=== PATIENT | male | born 1985 | race Two or more races ===

== ENCOUNTER 2017-09-28 13:36 | Emergency (ER) | payer BC, OTHER ==
[~2017-09-28] VITALS: Ht 172.7 cm; Wt 77.1 kg
[2017-09-28 13:59] VITALS: BP 136/82
[2017-09-29 09:12] LABS: Hepatitis B Surface Antibody Positive
[2017-09-29 10:49] LABS: Hepatitis B Surface Antigen Negative (Negative)
== END 2017-09-28 15:10 | disposition home or self-care (01) ==
LOC: ER 13:37
DX: H57.8 Other specified disorders of eye and adnexa (principal); Z77.21 Contact with and (suspected) exposure to potentially hazardous body fluids; W46.0XXA Contact with hypodermic needle, initial encounter; Y93.89 Activity, other specified; Y99.8 Other external cause status; Y92.89 Other specified places as the place of occurrence of the external cause
CPT/HCPCS: 36415; 86703; 86706; 86803; 87340

== ENCOUNTER → 2018-03-02 | Outpatient (CLI) | payer BC ==
[2018-03-02 11:39] LABS: Basophils # (auto) 0 uL; Basophils % (auto) 0.5 % (0.0-2.0); Eosinophils # (auto) 0.1 uL; Hematocrit 48.3 % (41.0-53.0); Lymphocytes # (auto) 1.6 uL; Mean Corpuscular Hemoglobin 28.6 pg (28.0-32.0); Mean Corpuscular Hgb Conc. 33.2 g/dL (32.0-36.0); Mean Corpuscular Volume 86.1 fL (80.0-100.0); Monocytes # (auto) 0.5 uL; Neutrophils # (auto) 3.6 uL; Neutrophils % (auto) 62.5 % (37.0-80.0); Nucleated Red Blood Cells % 0.1 %; Platelet Count (auto) 206 10^3/uL (140-450); Red Blood Cells 5.61 10^6/uL (4.5-5.90); Red Cell Distribution Width 15.1 % (11.8-14.3); White Blood Cell 5.8 10^3/uL (4.4-10.8)
[2018-03-02 13:15] LABS: Albumin 4.2 g/dL (3.4-5.0); Calcium 8.6 mg/dL (8.5-10.1); Potassium 4.4 mmol/L (3.5-5.1)
[2018-03-02 13:22] LABS: Bilirubin, Direct 0.1 mg/dL (0-0.2); Bilirubin, Total 0.6 mg/dL (0.2-1.0); Total Protein 7.6 g/dL (6.4-8.2)
== END | disposition home or self-care (01) ==
LOC: LAB 11:22
PROVIDERS: ATTEND Specialist
DX: I10 Essential (primary) hypertension (principal); R94.5 Abnormal results of liver function studies; D64.9 Anemia, unspecified; E78.00 Pure hypercholesterolemia, unspecified; E11.9 Type 2 diabetes mellitus without complications; E03.9 Hypothyroidism, unspecified
CPT/HCPCS: 36415; 80048; 80061; 80076; 83036; 84443; 85025

== ENCOUNTER 2019-04-15 14:50 | Emergency (ER) | payer BC ==
[~2019-04-15] VITALS: Ht 172.7 cm; Wt 81.6 kg
[2019-04-15 15:04] VITALS: BP 151/81
[2019-04-15] MEDS ORDERED: KETOROLAC TROMETH 60MG/2ML VIAL IM ONE (16:30)
== END 2019-04-15 18:16 | disposition home or self-care (01) ==
LOC: ER 14:50
DX: M54.5 Low back pain (principal)
CPT/HCPCS: 72100; 96372; 99283; J1885

== ENCOUNTER → 2019-04-20 | Outpatient (CLI) | payer BC ==
[2019-04-20 10:43] LABS: Basophils # (auto) 0 uL; Basophils % (auto) 0.6 % (0.0-2.0); Eosinophils # (auto) 0.1 uL; Eosinophils % (auto) 1.4 % (0.0-7.0); Hematocrit 49.1 % (41.0-53.0); Hemoglobin 16.2 g/dL (13.5-17.5); Lymphocytes # (auto) 1.8 uL; Lymphocytes % (auto) 31.2 % (10.0-50.0); Mean Corpuscular Hemoglobin 28.6 pg (28.0-32.0); Mean Corpuscular Volume 86.7 fL (80.0-100.0); Monocytes # (auto) 0.6 uL; Monocytes % (auto) 9.4 % (0.0-12.0); Neutrophils # (auto) 3.4 uL; Neutrophils % (auto) 57.4 % (37.0-80.0); Nucleated Red Blood Cells % 0.1 %; Platelet Count (auto) 184 10^3/uL (140-450); Red Blood Cells 5.66 10^6/uL (4.5-5.90); Red Cell Distribution Width 15.1 % (11.8-14.3); White Blood Cell 5.9 10^3/uL (4.4-10.8)
[2019-04-20 11:00] LABS: Urine Bacteria NONE SEEN /hpf (None Seen); Urine Blood Negative /uL (Negative); Urine WBC 1 /hpf (0 - 3)
[2019-04-20 11:31] LABS: Albumin 4.4 g/dL (3.4-5.0); Calcium 8.9 mg/dL (8.5-10.1); Magnesium 2.5 mg/dL (1.6-2.6); Potassium 4.5 mmol/L (3.5-5.1); Uric Acid 4.7 mg/dL (3.5-7.2)
[2019-04-20 11:36] LABS: Bilirubin, Total 0.5 mg/dL (0.2-1.0); Total Protein 8.1 g/dL (6.4-8.2)
[2019-04-20 15:22] LABS: BUN/Creatinine Ratio 14.9
== END | disposition home or self-care (01) ==
LOC: LAB 10:08
PROVIDERS: ATTEND Internal Medicine
DX: Z00.00 Encounter for general adult medical examination without abnormal findings (principal); Z76.89 Persons encountering health services in other specified circumstances
CPT/HCPCS: 36415; 80053; 80061; 81001; 82306; 82607; 83036; 83735; 84403; 84443; 84550; 85025

== ENCOUNTER 2019-04-26 09:44 | Emergency (ER) | payer BC ==
[~2019-04-26] VITALS: Ht 172.7 cm; Wt 83.9 kg
[2019-04-26 09:49] VITALS: BP 145/98
[2019-04-26] MEDS ORDERED: KETOROLAC TROMETH 60MG/2ML VIAL IM ONE (10:15)
[2019-04-26 10:34] LABS: Urine Bacteria NONE SEEN /hpf (None Seen); Urine Blood Negative /uL (Negative); Urine Mucus FEW (None Seen); Urine Specific Gravity 1.028 (1.001-1.035); Urine WBC 2 /hpf (0 - 3)
== END 2019-04-26 11:19 | disposition home or self-care (01) ==
LOC: ER 09:44
DX: S39.012A Strain of muscle, fascia and tendon of lower back, initial encounter (principal); X50.1XXA Overexertion from prolonged static or awkward postures, initial encounter; Y93.89 Activity, other specified; Y92.89 Other specified places as the place of occurrence of the external cause; Y99.8 Other external cause status
CPT/HCPCS: 74176; 81001; 96372; 99284; J1885

== ENCOUNTER 2020-02-16 12:28 | Emergency (ER) | payer BC, OTHER ==
[~2020-02-16] VITALS: Ht 175.3 cm; Wt 83.9 kg
[2020-02-16 12:30] VITALS: BP 174/93
[2020-02-16] MEDS ORDERED: cefTRIAXone SOD 1,000 MG VL IM ONE (15:00)
[2020-02-16 15:24] LABS: Basophils # (auto) 0 10 ^3/uL (0-0.2); Basophils % (auto) 0.2 % (0.0-2.0); Eosinophils # (auto) 0 10 ^3/uL (0-0.8); Eosinophils % (auto) 0.1 % (0.0-7.0); Hematocrit 51.7 % (41.0-53.0); Hemoglobin 17.2 g/dL (13.5-17.5); Lymphocytes # (auto) 1.5 10 ^3/uL (0.4-5.4); Lymphocytes % (auto) 15.9 % (10.0-50.0); Mean Corpuscular Hemoglobin 28.7 pg (28.0-32.0); Mean Corpuscular Hgb Conc. 33.3 g/dL (32.0-36.0); Mean Corpuscular Volume 86.3 fL (80.0-100.0); Monocytes # (auto) 0.7 10 ^3/uL (0-1.3); Monocytes % (auto) 6.9 % (0.0-12.0); Neutrophils # (auto) 7.4 10 ^3/uL (1.6-8.6); Neutrophils % (auto) 76.9 % (37.0-80.0); Platelet Count (auto) 271 10^3/uL (140-450); Red Blood Cells 5.99 10^6/uL (4.5-5.90); Red Cell Distribution Width 14.6 % (11.8-14.3)
[2020-02-16 15:30] LABS: White Blood Cell 9.7 10^3/uL (4.4-10.8)
[2020-02-16 15:31] LABS: Albumin 4.5 g/dL (3.4-5.0); Calcium 9.3 mg/dL (8.5-10.1); Potassium 4.5 mmol/L (3.5-5.1)
[2020-02-16 15:35] LABS: BUN/Creatinine Ratio 13.8; Bilirubin, Total 0.4 mg/dL (0.2-1.0)
== END 2020-02-16 17:16 | disposition home or self-care (01) ==
LOC: ER 12:28
DX: U07.1 COVID-19 (principal); J20.8 Acute bronchitis due to other specified organisms; J03.90 Acute tonsillitis, unspecified
CPT/HCPCS: 36415; 71045; 80053; 82728; 83615; 85025; 96372; 99284; J0696

== ENCOUNTER 2020-02-19 02:21 | Emergency (ER) | payer BC ==
[~2020-02-19] VITALS: Ht 175.3 cm; Wt 83.9 kg
[2020-02-19 02:44] LABS: Basophils # (auto) 0 10 ^3/uL (0-0.2); Basophils % (auto) 0.3 % (0.0-2.0); Eosinophils # (auto) 0 10 ^3/uL (0-0.8); Eosinophils % (auto) 0.3 % (0.0-7.0); Hemoglobin 17.1 g/dL (13.5-17.5); Lymphocytes # (auto) 2.1 10 ^3/uL (0.4-5.4); Lymphocytes % (auto) 27.1 % (10.0-50.0); Mean Corpuscular Hemoglobin 28.2 pg (28.0-32.0); Mean Corpuscular Hgb Conc. 32.8 g/dL (32.0-36.0); Monocytes # (auto) 0.7 10 ^3/uL (0-1.3); Neutrophils # (auto) 4.9 10 ^3/uL (1.6-8.6); Neutrophils % (auto) 63.3 % (37.0-80.0); Nucleated Red Blood Cells % 0.2 %; Platelet Count (auto) 293 10^3/uL (140-450); Red Blood Cells 6.04 10^6/uL (4.5-5.90); Red Cell Distribution Width 14.3 % (11.8-14.3); White Blood Cell 7.8 10^3/uL (4.4-10.8)
[2020-02-19 02:51] VITALS: BP 147/106
[2020-02-19 02:51] LABS: Albumin 4.4 g/dL (3.4-5.0); Anion Gap 6 (5-15); Blood Urea Nitrogen 13 mg/dL (7-18); Calcium 9.2 mg/dL (8.5-10.1); Carbon Dioxide 27 mmol/L (21-32); Chloride 104 mmol/L (98-107); Glucose 118 mg/dL (74-106); Potassium 3.8 mmol/L (3.5-5.1); Sodium 137 mmol/L (136-145)
[2020-02-19 02:57] LABS: Alanine Aminotransferase 35 U/L (16-61); Alkaline Phosphatase 73 U/L (45-117); Aspartate Aminotransferase 11 U/L (15-37); BUN/Creatinine Ratio 13.8; Bilirubin, Total 0.7 mg/dL (0.2-1.0); GFR African American 117 mL/min; GFR Non-African American 97 mL/min
[2020-02-19 03:00] LABS: INR 1.08 (0.9-1.15); Partial Thromboplastin Time 27.3 sec (23.0-31.2)
== END 2020-02-19 05:08 | disposition home or self-care (01) ==
LOC: EEVIPCON 02:21 → ER 02:24
DX: U07.1 COVID-19 (principal); J20.8 Acute bronchitis due to other specified organisms; J18.8 Other pneumonia, unspecified organism
CPT/HCPCS: 36415; 71045; 80053; 83880; 84484; 85025; 85379; 85610; 85730; 87426; 87804; 99284; C9803; U0003

== ENCOUNTER → 2020-03-03 | Outpatient (CLI) | payer BC ==
[2020-03-03 10:46] LABS: Basophils # (auto) 0 10 ^3/uL (0-0.2); Basophils % (auto) 0.3 % (0.0-2.0); Eosinophils # (auto) 0.1 10 ^3/uL (0-0.8); Eosinophils % (auto) 1.2 % (0.0-7.0); Hematocrit 49.3 % (41.0-53.0); Hemoglobin 16.6 g/dL (13.5-17.5); Lymphocytes # (auto) 2.2 10 ^3/uL (0.4-5.4); Lymphocytes % (auto) 28.9 % (10.0-50.0); Mean Corpuscular Hemoglobin 29.1 pg (28.0-32.0); Mean Corpuscular Hgb Conc. 33.7 g/dL (32.0-36.0); Mean Corpuscular Volume 86.4 fL (80.0-100.0); Monocytes # (auto) 0.6 10 ^3/uL (0-1.3); Monocytes % (auto) 7.5 % (0.0-12.0); Neutrophils # (auto) 4.7 10 ^3/uL (1.6-8.6); Neutrophils % (auto) 62.1 % (37.0-80.0); Platelet Count (auto) 250 10^3/uL (140-450); Red Cell Distribution Width 14.2 % (11.8-14.3); White Blood Cell 7.6 10^3/uL (4.4-10.8)
[2020-03-03 11:31] LABS: Potassium 4.4 mmol/L (3.5-5.1)
[2020-03-03 11:48] LABS: Albumin 3.9 g/dL (3.4-5.0); BUN/Creatinine Ratio 24.4; CRP High Sensitivity 0.14 mg/dL (< 0.3); Calcium 9.1 mg/dL (8.5-10.1)
[2020-03-03 12:55] LABS: Bilirubin, Total 0.3 mg/dL (0.2-1.0); Total Protein 7.3 g/dL (6.4-8.2)
== END | disposition home or self-care (01) ==
LOC: LAB 10:27
PROVIDERS: ATTEND Nurse Practitioner Acute Care
DX: G70.00 Myasthenia gravis without (acute) exacerbation (principal); U07.1 COVID-19
CPT/HCPCS: 36415; 80053; 82550; 82728; 83615; 85025; 85379; 85652; 86038; 86141; 86431

== ENCOUNTER → 2020-03-28 | Outpatient (CLI) | payer BC ==
[2020-03-28 11:18] LABS: Cholesterol 152 mg/dL (< 200); HDL Cholesterol 49 mg/dL (40-59); LDL Cholesterol 89 mg/dL (< 100); Triglycerides 94 mg/dL (< 150)
== END | disposition home or self-care (01) ==
LOC: LAB 10:40
PROVIDERS: ATTEND Nurse Practitioner Acute Care
DX: I10 Essential (primary) hypertension (principal); R00.2 Palpitations; R00.0 Tachycardia, unspecified; R09.89 Other specified symptoms and signs involving the circulatory and respiratory systems
CPT/HCPCS: 36415; 80061; 83036

== ENCOUNTER → 2020-06-11 | Outpatient (CLI) | payer BC | END | disposition home or self-care (01) | LOC: LAB 08:53 | PROVIDERS: ATTEND Internal Medicine | DX: I10 Essential (primary) hypertension (principal); R00.2 Palpitations; R00.0 Tachycardia, unspecified | CPT/HCPCS: 36415; 83036; 84443; 85379; 85652; 86038; 86141 ==

== ENCOUNTER → 2020-06-20 | Outpatient (CLI) | payer BC | END | disposition home or self-care (01) | LOC: LAB 09:41 | PROVIDERS: ATTEND Internal Medicine | DX: I10 Essential (primary) hypertension (principal); R00.2 Palpitations; R00.0 Tachycardia, unspecified | CPT/HCPCS: 82384 ==

== ENCOUNTER → 2020-08-13 | Outpatient (CLI) | payer BC | END | disposition home or self-care (01) | LOC: LAB 14:28 | PROVIDERS: ATTEND Internal Medicine Rheumatology | DX: M32.10 Systemic lupus erythematosus, organ or system involvement unspecified (principal) | CPT/HCPCS: 36415; 85652; 86141 ==